=== PATIENT | female | born 1985 ===

== ENCOUNTER 2017-07-20 18:16 | Emergency (ER) | payer OTHER ==
[2017-07-20 18:42] VITALS: BP 164/115; PULSE 106; RESP 18; TEMP 97.3; O2SAT 96
== END 2017-07-20 18:50 | disposition home or self-care (01) ==
LOC: ED 18:16
DX: S60.410A Abrasion of right index finger, initial encounter (principal); Y93.H2 Activity, gardening and landscaping
CPT/HCPCS: 99282